=== PATIENT | female | born 1950 | race Caucasian/White ===

== ENCOUNTER 2022-02-16 16:13 | Emergency (ER) | payer OTHER ==
[~2022-02-16] VITALS: Ht 147.3 cm; Wt 80.3 kg
[2022-02-16 16:13] VITALS: BP_SYST 195
--- NOTE | 2022-02-16 16:30 | NUR ---
patient placed in room 2 from triage for right facial tingling, edp made aware, patient denies chest pain/ sob, patient on security monitor, for B/S BY F/S 86MG/DL EDP AT BEDSIDE FOR INITIAL ASSESSMENT.
--- NOTE | 2022-02-16 16:37 | NUR ---
PATIENT TAKEN TO CT SCAN, WILL CONTINUE TO MONITOR.
[2022-02-16] MEDS ORDERED: ENALAPRILAT DIHYDRATE 1.25 MG/ML VIAL IVP ONE (17:00)
[2022-02-16 17:05] LABS: BASOPHILS % (AUTO) 0.9 % (0.0-2.0); LYMPHOCYTES # (AUTO) 0.6 K/uL (1.0-5.5); LYMPHOCYTES % (AUTO) 13.5 % (20.5-51.5); MEAN CORPUSCULAR VOLUME 92 fL (79.0-98.0); MONOCYTES # (AUTO) 0.4 K/uL (0.0-1.0); MONOCYTES % (AUTO) 8.7 % (1.7-9.3); NEUTROPHILS # (AUTO) 3.5 K/uL (1.8-7.7); NEUTROPHILS % (AUTO) 75.9 % (40.0-70.0); PLATELET COUNT (AUTO) 186 K/uL (130-430); RED BLOOD CELL COUNT(AUTO) 3.72 MIL/uL (4.2-6.2); WHITE BLOOD COUNT (AUTO) 4.6 K/uL (4.8-10.8)
[2022-02-16 17:20] LABS: ANION GAP 6 (5-15); CALCIUM 9.5 mg/dL (8.4-11.0); CHLORIDE 97 mmol/L (98-107); CREATININE 0.96 mg/dL (0.55-1.30); GLUCOSE 95 mg/dL (70-99); POTASSIUM 3.6 mmol/L (3.5-5.1); SODIUM SERUM 133 mmol/L (136-145); UREA NITROGEN, BLOOD 17 mg/dL (8-21)
[2022-02-16] MEDS ORDERED: ATEN-41 PO (17:23)
[2022-02-16 17:29] LABS: ALANINE AMINOTRANSFERASE 67 U/L (12-78); ALBUMIN 3.6 g/dL (3.4-4.8); ASPARTATE AMINOTRANSFERASE 40 U/L (10-37); TOTAL BILIRUBIN 0.8 mg/dL (0.0-1.0)
--- NOTE | 2022-02-16 17:30 | NUR ---
PATIENT REMAINS IN BED, NO ACUTE DISTRESS NOTED.
[2022-02-16] MEDS ORDERED: ATEN-41 (17:35)
[2022-02-16] MEDS ORDERED: MERCAP50 (17:35)
[2022-02-16] MEDS ORDERED: ECO81 (17:35)
[2022-02-16] MEDS ORDERED: PRED2.5T4 (17:35)
[2022-02-16] MEDS ORDERED: LISI-219 (17:35)
[2022-02-16] MEDS ORDERED: ATOR40TA68 (17:35)
[2022-02-16] MEDS ORDERED: LEVO75CA5 (17:35)
[2022-02-16 17:36] LABS: GFR AFRICAN AMERICAN 74 mL/min (>90)
[2022-02-16] MEDS ORDERED: MYCO250C (17:40)
[2022-02-16] MEDS ORDERED: AMLO2.5T2 PO (18:14)
[2022-02-16] MEDS ORDERED: iohexoL 350 mgI/mL, 100 ML INFUS..BTL IV ONE (18:14)
[2022-02-16] MEDS ORDERED: LISI1TAB57 PO (18:14)
--- NOTE | 2022-02-16 18:15 | NUR ---
PATIENT TAKEN BACK TO CT SCAN.
--- NOTE | 2022-02-16 18:41 | NUR ---
ALL RESULT BACK EDP REASSESS PATIENT AND D/C HOME WITH INSTRUCTION.
[2022-02-16 18:42] VITALS: BP_SYST 148
--- NOTE | 2022-02-16 18:46 | NUR ---
Patient given written and verbal discharge instructions and verbalizes understanding. ER MD discussed with patient the results and treatment provided. Patient in stable condition. ID arm band removed. IV catheter removed intact and dressing applied, no active bleeding. Rx of AMLODIPINE/LISINOPRIL/HCTZ given. Patient educated on pain management and to follow up with PMD. Pain Scale . Opportunity for questions provided and answered. Medication side effect fact sheet provided. PATIENT LEFT ER WITH IN GOOD STABLE CONDITION.
== END 2022-02-16 18:43 | disposition home or self-care (01) ==
LOC: SED 16:13
DX: I10 Essential (primary) hypertension (principal); R20.2 Paresthesia of skin; M25.551 Pain in right hip; E78.5 Hyperlipidemia, unspecified; Z79.899 Other long term (current) drug therapy; Z20.822 Contact with and (suspected) exposure to COVID-19
CPT/HCPCS: 99285; 70496; 87426; 80053; 85025; 84484; 36415; 93005; 70498; 70450; 76376; Q9967